=== PATIENT | female | born 1970 | race Caucasian/White ===

== ENCOUNTER 2022-04-20 04:00 | Day surgery (SDC) | payer OTHER ==
[2022-04-18 13:00] VITALS: BMI 28.1
[~2022-04-20 04:00] MED LIST: BUPIVACAINE HCL/PF 0.5% (5MG/ML) 10 ML VIAL NR ONE; LIDOCAINE 1%/EPI 1:100000 (20 ML MULTI DOSE VIAL) IJ ONE; ceFAZolin SODIUM 1 GM VIAL IVPB ONE
[2022-04-20] MEDS ORDERED: MIDAZOLAM HCL 2 MG/2 ML SINGLE DOSE VIAL ONE (13:17)
[2022-04-20] MEDS ORDERED: BUPIVACAINE HCL/PF 0.5% (5MG/ML) 10 ML VIAL ONE (13:29)
[2022-04-20] MEDS ORDERED: ceFAZolin SODIUM 1 GM VIAL IVPB ONE (14:20)
[2022-04-20] MEDS ORDERED: oxyCODONE HCL 5 MG TABLET PO PRN (14:37)
[2022-04-20] MEDS ORDERED: ONDANSETRON 4 MG/2 ML VIAL IVPUSH PRN (14:37)
[2022-04-20] MEDS ORDERED: BUPIVACAINE HCL/PF 0.5% (5MG/ML) 10 ML VIAL NR ONE ×2 (14:40)
[2022-04-20] MEDS ORDERED: LACTATED RINGERS SOLUTION 1,000 ML IV SCH ×2 (14:45→16:30)
[2022-04-20] MEDS ORDERED: SUCCINYLCHOLINE CHLORIDE 200 MG/10 ML SYRINGE ONE (15:39)
[2022-04-20] MEDS ORDERED: LIDOCAINE HCL/PF 2% SDV 5ML VIAL ONE (15:42)
[2022-04-20] MEDS ORDERED: ONDANSETRON 4 MG/2 ML VIAL ONE (15:42)
[2022-04-20] MEDS ORDERED: DEXAMETHASONE SOD PHOSPHATE 4 MG/1 ML VIAL ONE (15:42)
[2022-04-20] MEDS ORDERED: PROPOFOL 20 ML ONE (15:42)
[2022-04-20] MEDS ORDERED: ceFAZolin SODIUM 1 GM VIAL ONE (15:42)
[2022-04-20] MEDS ORDERED: CALCITRIOL 0.25 MCG CAPSULE (FP) PO ONE (16:43)
[2022-04-20] MEDS ORDERED: CALCIUM CARBONATE 650 MG TABLET PO ONE (16:43)
[2022-04-20 19:52] VITALS: RESP 20; TEMP 97.4
[2022-04-20 19:56] VITALS: BP 113/76; PULSE 92
== END 2022-04-20 19:50 | disposition home or self-care (01) ==
LOC: JASU-SURG 04:00 → EDBD 11:00 → JASU-SURG 19:50
PROVIDERS: ATTEND Surgery
PROC: 0GSR0ZZ Reposition Parathyroid Gland, Open Approach (ICD-10-PCS; 2022-04-20)
PROC: 0GTK0ZZ Resection of Thyroid Gland, Open Approach (ICD-10-PCS; principal; 2022-04-20 12:00)
DX: E04.2 Nontoxic multinodular goiter (principal)
CPT/HCPCS: 82962; 88305-TC; 88307-TC; 88331-TC; 88342-TC; 94760